=== PATIENT | male | born 1975 | race Caucasian/White ===

== ENCOUNTER 2017-01-31 03:06 | Emergency (ER) | payer OTHER ==
[2017-01-31] MEDS ORDERED: Bacitracin Oint 1 GM U/D Packet TOP ONE (03:28)
[2017-01-31] MEDS ORDERED: Diphtheria,Pertussis(Acell),Tetanus Vaccine 0.5 ML Syringe IM ONE (03:28)
[2017-01-31] MEDS ORDERED: Lidocaine 1% 20 ML MDV INJECT ONE (03:29)
[2017-01-31] MEDS ORDERED: Cephalexin 500 MG Cap PO ONE (03:29)
--- NOTE | 2017-01-31 03:34 | EDM.PDOC ---
ED HPI GENERAL MEDICAL PROBLEM - General Chief Complaint: Laceration Stated Complaint: CUT LEFT FINGER Time Seen by Provider: 01/31/17 03:22 - History of Present Illness INITIAL COMMENTS - FREE TEXT/NARRATIVE: HISTORY AND PHYSICAL: History of present illness: The patient is a 41-year-old male who is unsure of his last tetanus shot presents with complaints of a laceration to his left fifth digit that occurred while he was at work tonight about 2 hours ago. The patient states that he was climbing down a ladder and there are spikes on the latter prevent falling and he caught his wedding ring on the spike and it lacerated his finger. Patient denies any other trauma and prior to these events he was having a good day and had no systemic issues. Patient states he is able to bend and extend at the digit but he has an old football injury at the PIP joint where it hyperextends and that is not new. There was no crush injury associated with tonight's events. Review of systems: As per history of present illness and below otherwise all systems reviewed and negative. Past medical history: As per history of present illness and as reviewed below otherwise noncontributory. Surgical history: As per history of present illness and as reviewed below otherwise noncontributory. Social history: No reported history of drug or alcohol abuse. Family history: As per history of present illness and as reviewed below otherwise noncontributory. Physical exam: General: Well-developed well-nourished male who is nontoxic and vital signs of a noted by me HEENT: Atraumatic, normocephalic, pupils reactive,r, trachea midline. Lungs: Clear to auscultation, breath sounds equal bilaterally, chest nontender. Heart: S1S2, regular, negative for clicks, rubs, or JVD. Abdomen: Soft, nondistended, nontender. NABS Genitourinary: Deferred. Rectal: Deferred. Extremities: Atraumatic with full range of motion of all extremities with the exception of the left fourth digit where on the dorsal surface there is a 1.75 linear abrasion without laceration or soft tissue swelling and on the palmar surface near the PIP flexure there is a 3.5 cm flap laceration. There is no active bleeding. On the edges of the laceration on the palmar surface there is some minor skin loss which is very superficial. The patient is able to flex both the superficialis and profundus against resistance and no foreign bodies are appreciated. There are no palpable bony deformities and the patient does have some visible hyperextension at the PIP joint which she again reiterates is not new and old injury. Remainder of the hand is without tenderness or defects. The legs are, negative for cords or calf pain. Neurovascular unremarkable. Neuro: Awake, alert, oriented. Cranial nerves II through XII unremarkable. Cerebellum unremarkable. Motor and sensory unremarkable throughout. Exam nonfocal. Diagnostics: [] Therapeutics: Tdap, wound care with irrigation and bacitracin, Keflex Procedure note: After the procedure was explained to the patient a digital block was applied using 1% lidocaine without epinephrine. A Betadine prep was performed and the area was prepped and draped in sterile fashion. The wound was explored and no foreign bodies were appreciated and the skin edges were debrided minimally. The skin edges were reapproximated using simple interrupted sutures for a total number of# 8 sutures of 4-0 nylon. There no complications and bacitracin and a dressing was applied. Patient tolerated the procedure well. Impression: Laceration to left fourth digit Definitive disposition and diagnosis as appropriate pending reevaluation and review of above. left ring finger Pain Score (Numeric/FACES): 4 - Related Data Allergies Allergy/AdvReac Type Severity Reaction Status Date / Time shellfish derived Allergy Difficulty Verified 01/31/17 03:17 Breathing Home Meds: Home Meds . [No Known Home Meds] 01/31/17 [History] Past Medical History HEENT History: Reports: None Cardiovascular History: Reports: None Respiratory History: Reports: None Gastrointestinal History: Reports: Other (see below) Other Gastrointestinal History: acid reflux Genitourinary History: Reports: None Neurological History: Reports: None Psychiatric History: Reports: PTSD Endocrine/Metabolic History: Reports: None Dermatologic History: Reports: None - Infectious Disease History Infectious Disease History: Reports: Chicken pox, Influenza - Past Surgical History HEENT Surgical History: Reports: None Social & Family History - Tobacco Use Smoking Status *Q: Never Smoker - Caffeine Use Caffeine Use: Reports: Soda ED ROS GENERAL - Review of Systems Review Of Systems: ROS reveals no pertinent complaints other than HPI. ED EXAM, SKIN/RASH Exam: See Below (See dictation) Course - Vital Signs Last Recorded V/S: Last Vital Signs Temp 36.6 C 01/31/17 03:18 Pulse 80 01/31/17 03:18 Resp 16 01/31/17 03:18 BP 140/80 01/31/17 03:18 Pulse Ox 99 01/31/17 03:18 - Orders/Labs/Meds Orders: Active Orders 24 hr Category Date Time Status Vaccines to be Administered [RC] PER UNIT ROUTINE Care 01/31/17 03:29 Active Meds: Medications Discontinued Medications Generic Name Dose Route Start Last Admin Trade Name Serene PRN Reason Stop Dose Admin Bacitracin 1 dose 01/31/17 03:28 01/31/17 03:36 Bacitracin Oint 1 Gm TOP 01/31/17 03:29 1 dose ONETIME ONE Administration Cephalexin 500 mg 01/31/17 03:29 01/31/17 03:37 Keflex PO 01/31/17 03:30 500 mg ONETIME ONE Administration Diphtheria/Tetanus/Acell Pertussis 0.5 ml 01/31/17 03:28 01/31/17 03:35 Adacel IM 01/31/17 03:29 0.5 ml .ONCE ONE Administration Lidocaine HCl 20 ml 01/31/17 03:29 01/31/17 03:37 Xylocaine 1% INJECT 01/31/17 03:30 20 ml ONETIME ONE Administration Departure - Departure Time of Disposition: 04:27 Disposition: Home, Self-Care 01 Condition: good Clinical Impression: Laceration of finger of left hand Qualifiers: Encounter type: initial encounter Qualified Code(s): S61.219A - Laceration without foreign body of unspecified finger without damage to nail, initial encounter - Discharge Information Forms: ED Department Discharge Additional Instructions: The following information is given to patients seen in the emergency department who are being discharged to home. This information is to outline your options for follow-up care. We provide all patients seen in our emergency department with a follow-up referral. The need for follow-up, as well as the timing and circumstances, are variable depending upon the specifics of your emergency department visit. If you don't have a primary care physician on staff, we will provide you with a referral. We always advise you to contact your personal physician following an emergency department visit to inform them of the circumstance of the visit and for follow-up with them and/or the need for any referrals to a consulting specialist. The emergency department will also refer you to a specialist when appropriate. This referral assures that you have the opportunity for followup care with a specialist. All of these measure are taken in an effort to provide you with optimal care, which includes your followup. Under all circumstances we always encourage you to contact your private physician who remains a resource for coordinating your care. When calling for followup care, please make the office aware that this follow-up is from your recent emergency room visit. If for any reason you are refused follow-up, please contact the [facility] emergency department at and ask to speak to the emergency department charge nurse. [facility] Specialty clinic-Plastic Surgery and Hand Surgery Professional Building [address] [place] [address] Please followup per your employee or his instructions regarding occupational/ employee health. Keep area of finger clean and dry for the next 24 hours then remove the dressing and rinse and wash with mild soap and water pat dry. Apply bacitracin or Neosporin for the next 2 days and then stop the ointment. Sutures should be removed in 7 days either here or with your occupational health physician or with our hand specialist . You can call and followup with her as well. Please take antibiotics as directed. Return to ER as needed and as discussed please take care to not use of the finger with forceful flexion for the next 3-5 days. - My Orders Last 24 Hours: My Active Orders 01/31/17 03:29 Vaccines to be Administered [RC] PER UNIT ROUTINE - Assessment/Plan Last 24 Hours: My Active Orders 01/31/17 03:29 Vaccines to be Administered [RC] PER UNIT ROUTINE
[2017-01-31 04:54] VITALS: BP 127/74
== END 2017-01-31 04:54 | disposition home or self-care (01) ==
LOC: MW.ED 03:06
DX: S61.215A Laceration without foreign body of left ring finger without damage to nail, initial encounter (principal); K21.9 Gastro-esophageal reflux disease without esophagitis; Z91.013 Allergy to seafood; Z23 Encounter for immunization; W26.8XXA Contact with other sharp object(s), not elsewhere classified, initial encounter; Y93.39 Activity, other involving climbing, rappelling and jumping off
CPT/HCPCS: 12002; 90471; 90715; 99282; A9270; 12032; 99283

== ENCOUNTER 2017-03-23 10:49 | Emergency (ER) | payer OTHER ==
--- NOTE | 2017-03-23 11:02 | EDM.PDOC ---
ED HPI GENERAL MEDICAL PROBLEM - General Chief Complaint: Skin Complaint Stated Complaint: POSSIBLE SHINGLES Time Seen by Provider: 03/23/17 10:53 - History of Present Illness INITIAL COMMENTS - FREE TEXT/NARRATIVE: HISTORY AND PHYSICAL: History of present illness: Patient 41-year-old white male presents with a concern of painful rash and possible shingles states is worse last several days and about his chest and back in a dermatomal distribution Review of systems: As per history of present illness and below otherwise all systems reviewed and negative. Past medical history: As per history of present illness and as reviewed below otherwise noncontributory. Surgical history: As per history of present illness and as reviewed below otherwise noncontributory. Social history: No reported history of drug or alcohol abuse. Family history: As per history of present illness and as reviewed below otherwise noncontributory. Physical exam: HEENT: Atraumatic, normocephalic, pupils reactive, negative for conjunctival pallor or scleral icterus, mucous membranes moist, throat clear, neck supple, nontender, trachea midline. Lungs: Clear to auscultation, breath sounds equal bilaterally, chest nontender. Heart: S1S2, regular, negative for clicks, rubs, or JVD. Abdomen: Soft, nondistended, nontender. Negative for masses or hepatosplenomegaly. Negative for costovertebral tenderness. Pelvis: Stable nontender. Genitourinary: Deferred. Rectal: Deferred. Extremities: Atraumatic, negative for cords or calf pain. Neurovascular unremarkable. Neuro: Awake, alert, oriented. Cranial nerves II through XII unremarkable. Cerebellum unremarkable. Motor and sensory unremarkable throughout. Exam nonfocal. Skin: Patient has a maculopapular rash with some early vesicular formation in a dermatomal type distribution both on his left anterior hemithorax and left posterior hemithorax Diagnostics: None Therapeutics: None Impression: #1 herpes zoster Definitive disposition and diagnosis as appropriate pending reevaluation and review of above. - Related Data Allergies Allergy/AdvReac Type Severity Reaction Status Date / Time shellfish derived Allergy Difficulty Verified 01/31/17 03:17 Breathing Home Meds: Home Meds . [No Known Home Meds] 01/31/17 [History] Past Medical History HEENT History: Reports: None Cardiovascular History: Reports: None Respiratory History: Reports: None Gastrointestinal History: Reports: Other (See Below) Other Gastrointestinal History: acid reflux Genitourinary History: Reports: None Neurological History: Reports: None Psychiatric History: Reports: PTSD Endocrine/Metabolic History: Reports: None Dermatologic History: Reports: None - Infectious Disease History Infectious Disease History: Reports: Chicken Pox, Influenza - Past Surgical History HEENT Surgical History: Reports: None Social & Family History - Tobacco Use Smoking Status *Q: Never Smoker - Caffeine Use Caffeine Use: Reports: Soda ED ROS GENERAL - Review of Systems Review Of Systems: ROS reveals no pertinent complaints other than HPI. ED EXAM, SKIN/RASH Exam: See Below (See dictation) Departure - Departure Time of Disposition: 10:56 Disposition: Home, Self-Care 01 Condition: Good Clinical Impression: Herpes zoster - Discharge Information Forms: ED Department Discharge Additional Instructions: The following information is given to patients seen in the emergency department who are being discharged to home. This information is to outline your options for follow-up care. We provide all patients seen in our emergency department with a follow-up referral. The need for follow-up, as well as the timing and circumstances, are variable depending upon the specifics of your emergency department visit. If you don't have a primary care physician on staff, we will provide you with a referral. We always advise you to contact your personal physician following an emergency department visit to inform them of the circumstance of the visit and for follow-up with them and/or the need for any referrals to a consulting specialist. The emergency department will also refer you to a specialist when appropriate. This referral assures that you have the opportunity for followup care with a specialist. All of these measure are taken in an effort to provide you with optimal care, which includes your followup. Under all circumstances we always encourage you to contact your private physician who remains a resource for coordinating your care. When calling for followup care, please make the office aware that this follow-up is from your recent emergency room visit. If for any reason you are refused follow-up, please contact the [facility] emergency department at and asked to speak to the emergency department charge nurse. Acyclovir Tylenol No. 3 as prescribed follow-up primary medical doctor 1-2 days return as needed as discussed
== END 2017-03-23 11:07 | disposition home or self-care (01) ==
LOC: MW.ED 10:49
CPT/HCPCS: 99282

== ENCOUNTER 2017-10-28 01:06 | Emergency (ER) | payer OTHER ==
[2017-10-28] MEDS ORDERED: Ketorolac 60 MG/2 ML SDV IM ONE (01:30)
[2017-10-28] MEDS ORDERED: cefTRIAXone 1,000 MG in Lidocaine 1% 4 ML IM ONE (01:30)
--- NOTE | 2017-10-28 01:33 | EDM.PDOC ---
ED HPI GENERAL MEDICAL PROBLEM - General Chief Complaint: ENT Problem Stated Complaint: SWELLING IN MOUTH- RECENT TOOTH EXTRACTION Time Seen by Provider: 10/28/17 01:31 Source of Information: Reports: Patient - History of Present Illness INITIAL COMMENTS - FREE TEXT/NARRATIVE: HISTORY AND PHYSICAL: History of present illness: [Patient presents with dental pain left upper post tooth extraction on Friday 5 days almost 7 days prior, he does have an appointment in [place] with his dentist in about 12 hours. No fever nausea vomiting chills sweats he has some new swelling and discomfort 6 out of 10 pain left upper associated with the tooth removal ] Review of systems: As per history of present illness and below otherwise all systems reviewed and negative. Past medical history: As per history of present illness and as reviewed below otherwise noncontributory. Surgical history: As per history of present illness and as reviewed below otherwise noncontributory. Social history: No reported history of drug or alcohol abuse. Family history: As per history of present illness and as reviewed below otherwise noncontributory. Physical exam: HEENT: Atraumatic, normocephalic, pupils reactive, negative for conjunctival pallor or scleral icterus, mucous membranes moist, throat clear, neck supple, nontender, trachea midline. Swelling and tenderness to left cheek no redness warmth or fluctuance Lungs: Clear to auscultation, breath sounds equal bilaterally, chest nontender. Heart: S1S2, regular, negative for clicks, rubs, or JVD. Abdomen: Soft, nondistended, nontender. Negative for masses or hepatosplenomegaly. Negative for costovertebral tenderness. Pelvis: Stable nontender. Genitourinary: Deferred. Rectal: Deferred. Extremities: Atraumatic, negative for cords or calf pain. Neurovascular unremarkable. Neuro: Awake, alert, oriented. Cranial nerves II through XII unremarkable. Cerebellum unremarkable. Motor and sensory unremarkable throughout. Exam nonfocal. Diagnostics: [Clinical] Therapeutics: []Toradol 60 IM Rocephin 1 g IM Augmentin 875 by mouth twice a day #20 no refill Ibuprofen 400 mg 3 times daily and follow-up with dentist as scheduled at 3 PM Impression: [Dental pain and swelling post tooth extraction Possible early abscess formation Definitive disposition and diagnosis as appropriate pending reevaluation and review of above. Treatments [employer]CH[employer]ICIAN: Reports: Acetaminophen, NSAIDS left upper jaw Pain Score (Numeric/FACES): 6 - Related Data Allergies Allergy/AdvReac Type Severity Reaction Status Date / Time shellfish derived Allergy Difficulty Verified 10/28/17 01:17 Breathing bee Allergy Hives Uncoded 10/28/17 01:17 Home Meds: Home Meds . [No Known Home Meds] 01/31/17 [History] Past Medical History - Past Health History Medical/Surgical History: Denies Medical/Surgical History HEENT History: Reports: None Cardiovascular History: Reports: None Respiratory History: Reports: None Gastrointestinal History: Reports: Other (See Below) Other Gastrointestinal History: acid reflux Genitourinary History: Reports: None Musculoskeletal History: Reports: None Neurological History: Reports: None Psychiatric History: Reports: None, PTSD Endocrine/Metabolic History: Reports: None Hematologic History: Reports: None Oncologic (Cancer) History: Reports: None Dermatologic History: Reports: None - Infectious Disease History Infectious Disease History: Reports: Chicken Pox, Influenza - Past Surgical History HEENT Surgical History: Reports: None Male Surgical History: Reports: None Social & Family History - Family History Family Medical History: Noncontributory - Tobacco Use Smoking Status *Q: Never Smoker Second Hand Smoke Exposure: Yes - Caffeine Use Caffeine Use: Reports: Soda Caffeine Use Comment: 2 drink/day - Recreational Drug Use Recreational Drug Use: No ED ROS GENERAL - Review of Systems Review Of Systems: ROS reveals no pertinent complaints other than HPI. ED EXAM, GENERAL - Physical Exam Exam: See Below Course - Vital Signs Last Recorded V/S: Last Vital Signs Temp 97.8 F 10/28/17 01:18 Pulse 81 10/28/17 01:18 Resp 16 10/28/17 01:18 BP 158/106 H 10/28/17 01:18 Pulse Ox 93 L 10/28/17 01:18 - Orders/Labs/Meds Orders: Active Orders 24 hr Category Date Time Status Ketorolac [Toradol] Med 10/28/17 01:30 Once 60 mg IM ONETIME ONE cefTRIAXone [Rocephin] 1,000 mg Med 10/28/17 01:30 Ordered Lidocaine 1% [Xylocaine-MPF 1%] 4 ml IM ONETIME Departure - Departure Time of Disposition: 01:32 Disposition: Home, Self-Care 01 Condition: Good Clinical Impression: Pain, dental - Discharge Information Referrals: PCP,None [Primary Care Provider] - Additional Instructions: The following information is given to patients seen in the emergency department who are being discharged to home. This information is to outline your options for follow-up care. We provide all patients seen in our emergency department with a follow-up referral. The need for follow-up, as well as the timing and circumstances, are variable depending upon the specifics of your emergency department visit. If you don't have a primary care physician on staff, we will provide you with a referral. We always advise you to contact your personal physician following an emergency department visit to inform them of the circumstance of the visit and for follow-up with them and/or the need for any referrals to a consulting specialist. The emergency department will also refer you to a specialist when appropriate. This referral assures that you have the opportunity for follow-up care with a specialist. All of these measure are taken in an effort to provide you with optimal care, which includes your follow-up. Under all circumstances we always encourage you to contact your private physician who remains a resource for coordinating your care. When calling for follow-up care, please make the office aware that this follow-up is from your recent emergency room visit. If for any reason you are refused follow-up, please contact the [facility] emergency department at and asked to speak to the emergency department charge nurse. - My Orders Last 24 Hours: My Active Orders 10/28/17 01:30 Ketorolac [Toradol] 60 mg IM ONETIME ONE cefTRIAXone [Rocephin] 1,000 mg Lidocaine 1% [Xylocaine-MPF 1%] 4 ml IM ONETIME - Assessment/Plan Last 24 Hours: My Active Orders 10/28/17 01:30 Ketorolac [Toradol] 60 mg IM ONETIME ONE cefTRIAXone [Rocephin] 1,000 mg Lidocaine 1% [Xylocaine-MPF 1%] 4 ml IM ONETIME
[2017-10-28 02:16] VITALS: BP 148/108
== END 2017-10-28 02:10 | disposition home or self-care (01) ==
LOC: MW.ED 01:06
DX: K08.89 Other specified disorders of teeth and supporting structures (principal); Z91.013 Allergy to seafood; Z91.030 Bee allergy status
CPT/HCPCS: 96372; 99283; J0696; J1885

== ENCOUNTER 2022-05-23 16:00 | Emergency (ER) | payer BC, OTHER ==
[2022-05-23] MEDS ORDERED: Sodium Chloride 0.9% 1,000 ML IV ONE (16:10)
[2022-05-23] MEDS ORDERED: Ketorolac 30 MG/ML SDV IVPUSH ONE (16:10)
[2022-05-23] MEDS ORDERED: Ondansetron 4 MG/2 ML SDV IVPUSH ONE (16:10)
[2022-05-23 17:51] LABS: CARBON DIOXIDE,CO2 25.4 mmol/L (21.0-32.0); POTASSIUM,K 4.4 mmol/L (3.5-5.1)
== END 2022-05-23 18:16 | disposition home or self-care (01) ==
LOC: MW.ED 16:00
DX: N13.2 Hydronephrosis with renal and ureteral calculous obstruction (principal); Z91.013 Allergy to seafood; Z91.030 Bee allergy status
CPT/HCPCS: 36415; 74176; 80053; 81003; 85025; 96361; 96374; 96375; 99284; J1885; J2405; J7030